=== PATIENT | male | born 1995 | race African-American/Black ===

== ENCOUNTER 2019-11-08 17:31 | Inpatient (IN) | payer MEDICAID, OTHER ==
[~2019-11-08] VITALS: Ht 170.2 cm; Wt 78.5 kg
[2019-11-08 18:29] LABS: BASOPHILS % 0.4 % (0.0-2.0); EOSINOPHILS % 0.6 % (0.0-5.0); HEMATOCRIT. 48.3 % (42.0-52.0); HEMOGLOBIN. 15.9 g/dL (14.0-18.0); LYMPHOCYTES % 39.1 % (20.0-50.0); MEAN CORPUSCULAR HEMOGLOBIN 29.4 pg (28.0-32.0); MEAN CORPUSCULAR VOLUME 89.1 fL (80.0-94.0); MEAN PLATELET VOLUME 8.1 fl (7.4-10.4); MONOCYTES % 7.2 % (2.0-8.0); NEUTROPHILS % 52.7 % (40.0-76.0); PLATELET 200 x1000/uL (130-400); RED BLOOD CELL COUNT 5.42 mill/uL (4.7-6.1); RED CELL DISTRIBUTION WIDTH 13.6 % (11.6-14.6)
[2019-11-08 18:39] LABS: CHLORIDE 107 mEq/L (98-107)
[2019-11-08 18:43] LABS: ETHANOL BLOOD < 10 mg/dL
[2019-11-08 18:59] LABS: PROTHROMBIN TIME 10.5 sec (9.6-11.0)
[2019-11-08] MEDS ORDERED: METOPROLOL TARTRATE 25MG TABLET PO ONE (19:30)
[2019-11-08 20:36] LABS: CLARITY URINE CLEAR (CLEAR); COLOR URINE YELLOW (YELLOW); KETONES URINE NEGATIVE (NEGATIVE); LEUKOCYTE ESTERASE URINE 1+ (NEGATIVE); NITRITE URINE NEGATIVE (NEGATIVE); OCCULT BLOOD URINE NEGATIVE (NEGATIVE); PROTEIN URINE NEGATIVE (NEGATIVE); SPECIFIC GRAVITY URINE 1.016 (1.005-1.030); UROBILINOGEN URINE 0.2 E.U./dL (0.2-1.0)
[2019-11-08 20:49] LABS: *AMPHETAMINES SCREEN URINE NEGATIVE (NEGATIVE); *COCAINE SCREEN URINE NEGATIVE (NEGATIVE); CANNABINOID URINE SCREEN PRESUMTIVE POSITIVE (NEGATIVE); METHADONE URINE SCREEN NEGATIVE (NEGATIVE); PHENCYCLIDINE URINE SCREEN NEGATIVE (NEGATIVE)
[2019-11-08 20:50] LABS: *BARBITURATES SCREEN URINE NEGATIVE (NEGATIVE); *BENZODIAZEPINES SCREEN URINE NEGATIVE (NEGATIVE)
[2019-11-08 20:57] LABS: OPIATES URINE SCREEN NEGATIVE (NEGATIVE)
[2019-11-09] MEDS ORDERED: ONDANSETRON HCL 4MG/2ML INJ IV PRN ×2 (00:30→10:30)
[2019-11-09] MEDS ORDERED: LORAZEPAM 1MG TABLET PO PRN (00:30)
[2019-11-09 09:39] VITALS: BP 116/64
[2019-11-09 09:43] VITALS: BP 116/64
[2019-11-09] MEDS ORDERED: ACETAMINOPHEN 325MG TABLET PO PRN (10:30)
[2019-11-09 12:00] VITALS: BP 115/60
[2019-11-09] MEDS: ENOXAPARIN 40MG/0.4ML SYR SUBCUT SCH (12:00)
[2019-11-09 16:00] VITALS: BP 114/61
[2019-11-09 20:00] VITALS: BP 111/68
[2019-11-09] MEDS: METOPROLOL TARTRATE 25MG TABLET PO SCH (22:00)
[2019-11-09] MEDS: SOTALOL HCL 80MG TABLET PO SCH (22:14)
[2019-11-10 00:19] VITALS: BP 111/38
[2019-11-10 04:00] VITALS: BP 119/54
[2019-11-10 08:00] VITALS: BP 114/76
[2019-11-10 08:17] LABS: BASOPHILS % 0.3 % (0.0-2.0); EOSINOPHILS % 0.5 % (0.0-5.0); HEMATOCRIT. 47.6 % (42.0-52.0); HEMOGLOBIN. 16.1 g/dL (14.0-18.0); LYMPHOCYTES % 28.4 % (20.0-50.0); MEAN CORPUSCULAR HEMOGLOBIN 29.9 pg (28.0-32.0); MEAN CORPUSCULAR VOLUME 88.6 fL (80.0-94.0); MEAN PLATELET VOLUME 8.6 fl (7.4-10.4); MONOCYTES % 6.3 % (2.0-8.0); NEUTROPHILS % 64.5 % (40.0-76.0); PLATELET 211 x1000/uL (130-400); RED BLOOD CELL COUNT 5.37 mill/uL (4.7-6.1); RED CELL DISTRIBUTION WIDTH 13.5 % (11.6-14.6)
[2019-11-10] MEDS: SOTALOL HCL 80MG TABLET PO SCH (08:26)
[2019-11-10] MEDS: ENOXAPARIN 40MG/0.4ML SYR SUBCUT SCH (08:26)
[2019-11-10] MEDS: METOPROLOL TARTRATE 25MG TABLET PO SCH (08:26)
[2019-11-10 08:40] LABS: CHLORIDE 105 mEq/L (98-107)
== END 2019-11-10 11:00 | disposition left against medical advice (07) | DRG 201 ==
LOC: EDBD 17:31 → ER 17:31 → 6WST 21:42 → EDBEDREQ 21:44 → EDBEDREQTM 21:44 → ENRESERV 11-09 08:01
PROVIDERS: ADMIT Internal Medicine; ATTEND Internal Medicine
DX: I48.0 Paroxysmal atrial fibrillation (principal); F12.90 Cannabis use, unspecified, uncomplicated; Z53.29 Procedure and treatment not carried out because of patient's decision for other reasons
CPT/HCPCS: 36415; 71045; 80048; 80053; 80061; 80305; 80320; 81003; 83880; 84443; 84484; 85025; 93005; 93306; 99285; J1650; G0480